=== PATIENT | male | born 1945 | race Caucasian/White ===

== ENCOUNTER 2018-05-23 13:28 | Outpatient (RCR) | payer MEDICARE ==
[~2018-05-23 13:28] MED LIST: ASP81TEC PO; CLIN-62 PO; DOCU100T7 PO; HYDR-707 PO; INSU100I10 SQ; MULT-608 PO; OMEG1CAP51 PO
== END 2018-07-18 | disposition home or self-care (01) ==
LOC: ONC 13:28
PROVIDERS: ATTEND Radiology Radiation Oncology
DX: Z51.0 Encounter for antineoplastic radiation therapy (principal); C4A.59 Merkel cell carcinoma of other part of trunk
CPT/HCPCS: 77290; 77300; 77332; 77334; 77336; 99204